=== PATIENT | female | born 1975 | race Caucasian/White ===

== ENCOUNTER 2024-01-07 09:54 | Day surgery (SDC) | payer OTHER ==
[2023-12-23 12:43] VITALS: BMI 19.4
[2024-01-07 10:21] VITALS: RESP 16
[2024-01-07 11:54] VITALS: PULSE 62; TEMP 97.1
[2024-01-07 12:22] VITALS: BP 126/83
== END 2024-01-07 12:05 | disposition home or self-care (01) ==
LOC: FASU-ENDO 09:54
PROVIDERS: ATTEND Internal Medicine Gastroenterology
PROC: 0DB68ZX Excision of Stomach, Via Natural or Artificial Opening Endoscopic, Diagnostic (ICD-10-PCS; 2024-01-07)
PROC: 0DB48ZX Excision of Esophagogastric Junction, Via Natural or Artificial Opening Endoscopic, Diagnostic (ICD-10-PCS; 2024-01-07)
PROC: 0DB98ZX Excision of Duodenum, Via Natural or Artificial Opening Endoscopic, Diagnostic (ICD-10-PCS; principal; 2024-01-07 11:22)
DX: K21.00 Gastro-esophageal reflux disease with esophagitis, without bleeding (principal); K31.7 Polyp of stomach and duodenum; K31.89 Other diseases of stomach and duodenum
CPT/HCPCS: 81025; 88305-TC; 88342-TC